=== PATIENT | female | born 1985 ===

== ENCOUNTER 2020-08-13 10:50 | Outpatient (CLI) | payer OTHER ==
[2020-08-14 14:49] LABS: SARS-CoV-2 MS2 Positive; SARS-CoV-2 N Gene Negative; SARS-CoV-2 S Gene Negative; SARS-CoV-2 by NAA Not Detected (NotDetected); SARS-CoV-2 orf1ab Negative
== END 2020-08-13 10:51 | disposition home or self-care (01) ==
LOC: LABSCS 10:50
PROVIDERS: ATTEND Family Medicine
DX: Z20.828 Contact with and (suspected) exposure to other viral communicable diseases (principal)
CPT/HCPCS: 87635; U0003

== ENCOUNTER 2020-08-16 19:15 | Inpatient (IN) | payer OTHER, SELFPAY ==
[2020-08-16] MEDS ORDERED: Ibuprofen 800 MG TAB PO PRN (22:26)
[2020-08-16] MEDS ORDERED: Butorphanol Tartrate 1 MG/ML VIAL SLOW IVP PRN (22:26)
[2020-08-16] MEDS ORDERED: Lidocaine 1% (PF) 30 ML VIAL SC PRN (22:26)
[2020-08-16] MEDS ORDERED: hydrALAZINE 20 MG/ML VIAL SLOW IVP PRN (22:26)
[2020-08-16] MEDS ORDERED: NS / Oxytocin 40 units/1000ml 1,000 ML IV PRN (22:26)
[2020-08-16] MEDS ORDERED: Ondansetron PF 4 MG/2 ML Vial IVP PRN (22:26)
[2020-08-16] MEDS ORDERED: Misoprostol 200 MCG TAB PR PRN (22:26)
[2020-08-16] MEDS ORDERED: Diphenoxylate HCl/Atropine Tablet PO PRN (22:26)
[2020-08-16] MEDS ORDERED: NS w/ Oxytocin 10 units 500 ML IV SCH ×2 (22:26)
[2020-08-16] MEDS ORDERED: Promethazine HCl 25 MG/ML VIAL IM PRN (22:26)
[2020-08-16] MEDS ORDERED: HYDROcodone/Acetaminophen 5/325 mg Tablet PO PRN (22:26)
[2020-08-16] MEDS ORDERED: Carboprost 250 MCG/ML AMP IM PRN (22:26)
[2020-08-16] MEDS ORDERED: Methylergonovine 0.2 MG/ML VIAL IM PRN (22:26)
[2020-08-16 22:51] VITALS: BMI 31.1
[2020-08-16] MEDS ORDERED: Ondansetron PF 4 MG/2 ML Vial ONE (23:16)
[2020-08-16 23:20] LABS: Hemoglobin 13.2 g/dL (12.0-16.0); Mean Corpuscular HGB CONC 33.9 g/dL (32.0-36.0); Mean Corpuscular Hemoglobin 32.6 pg (27.0-31.0); Mean Corpuscular Volume 95.9 fL (78.0-98.0); Mean Platelet Volume 7.6 fL (7.4-10.4); Platelet Count 210 thou/uL (130-400); RBC Distribution Width 12.3 % (11.5-14.5); Red Blood Cell (RBC) Count 4.05 mill/uL (4.20-5.40); White Blood Cell (WBC) Count 9.4 thou/uL (4.8-10.8)
[2020-08-16] MEDS: Misoprostol 100 MCG TAB PO SCH (23:26)
[2020-08-16] MEDS: Lactated Ringer's 1,000 ML IV SCH (23:28)
[2020-08-16] MEDS ORDERED: Penicillin G Potassium 5 MILL.UNITS in Sodium Chloride 0.9% 100 ML IVPB SCH (23:45)
[2020-08-17 00:01] LABS: Hep B Surf Ag Non-Reactive S/CO (NonReactive); Syphilis Antibody Nonreactive (Nonreactive); Syphilis Antibody Index 0.05 S/CO (<1.00 Non-Reactive)
[2020-08-17] MEDS: Misoprostol 100 MCG TAB PO SCH ×3 (04:41→17:50)
[2020-08-17] MEDS: Penicillin G 2.5 MILL.units 2.5 MILL.UNITS in Premix Bag 1 BAG IVPB SCH ×5 (08:54→12:55)
[2020-08-17] MEDS: Lactated Ringer's 1,000 ML IV SCH ×2 (08:58→16:01)
[2020-08-17] MEDS ORDERED: Misoprostol 100 MCG TAB PO PRN (09:28)
[2020-08-17] MEDS ORDERED: Misoprostol 100 MCG TAB VAG PRN (09:30)
[2020-08-17] MEDS ORDERED: Misoprostol 100 MCG TAB VAG SCH (09:30)
[2020-08-17] MEDS ORDERED: CEFAZOLIN 2 GM in Premix Bag 1 BAG IVPB SCH (12:15)
[2020-08-17] MEDS ORDERED: Bicitra 30 ML UDCUP PO SCH (12:15)
[2020-08-17] MEDS ORDERED: Terbutaline Sulfate 1 MG/ML VIAL ONE (12:41)
[2020-08-17] MEDS ORDERED: Terbutaline Sulfate 1 MG/ML VIAL SC SCH (13:15)
[2020-08-17] MEDS ORDERED: EPHEDRINE 25 MG/5 ML SYRINGE ONE (15:57)
[2020-08-17] MEDS ORDERED: Oxytocin 10 UNITS/ML VIAL ONE ×2 (15:57→16:54)
[2020-08-17] MEDS ORDERED: Ondansetron PF 4 MG/2 ML Vial ONE (15:57)
[2020-08-17] MEDS ORDERED: PHENYLEPHRINE-NS 100 MCG/ML 10 ML SYRINGE ONE (15:57)
[2020-08-17] MEDS ORDERED: Ketorolac Tromethamine 30 MG/ML VIAL ONE (15:57)
[2020-08-17] MEDS ORDERED: Naloxone HCl 0.4 mg/ml Vial IV PRN (16:30)
[2020-08-17] MEDS ORDERED: Ketorolac Tromethamine 30 MG/ML VIAL IVP SCH (16:30)
[2020-08-17] MEDS ORDERED: Ondansetron HCl/PF 4 MG/2 ML Vial IVP PRN (16:30)
[2020-08-17] MEDS ORDERED: Communication Order-Pharmacy FS SCH (16:30)
[2020-08-17] MEDS ORDERED: Ketorolac Tromethamine 30 MG/ML VIAL IVP PRN (16:30)
[2020-08-17] MEDS ORDERED: Promethazine HCl 25 MG/ML VIAL IM PRN ×2 (16:30→20:02)
[2020-08-17] MEDS ORDERED: HYDROmorphone 2 MG/ML VIAL SLOW IVP PRN (16:30)
[2020-08-17] MEDS ORDERED: diphenhydrAMINE 50 MG/ML VIAL IVP PRN (16:30)
[2020-08-17] MEDS ORDERED: Naloxone HCl 0.4 mg/ml Vial IVP PRN ×2 (16:30)
[2020-08-17] MEDS ORDERED: L&D-Morphine 4 MG/ML VIAL SLOW IVP PRN (16:30)
[2020-08-17] MEDS ORDERED: Promethazine HCl 25 MG SUPP PR PRN (16:30)
[2020-08-17] MEDS ORDERED: Ondansetron PF 4 MG/2 ML Vial IVP PRN ×2 (16:30→20:02)
[2020-08-17] MEDS ORDERED: Meperidine HCl/PF 25 MG/ML VIAL SLOW IVP PRN (16:30)
[2020-08-17] MEDS ORDERED: Midazolam HCl 2 mg/2 ml Vial ONE (17:02)
[2020-08-17] MEDS ORDERED: Lanolin Ointment 7 GM TUBE TOP PRN (20:02)
[2020-08-17] MEDS ORDERED: hydrALAZINE 20 MG/ML VIAL SLOW IVP PRN (20:02)
[2020-08-17] MEDS ORDERED: diphenhydrAMINE 25 MG CAP PO PRN (20:02)
[2020-08-17] MEDS ORDERED: Bisacodyl 10 MG SUPP PR PRN (20:02)
[2020-08-18] MEDS: Docusate Calcium (SURFAK) 240 MG CAP PO SCH ×3 (00:43→22:44)
[2020-08-18] MEDS: Ferrous Sulfate 325 MG TAB PO SCH ×2 (00:44→07:51)
[2020-08-18] MEDS: Ketorolac Tromethamine 30 MG/ML VIAL IVP SCH ×3 (00:45→12:22)
[2020-08-18] MEDS ORDERED: Meperidine HCl/PF 25 MG/ML VIAL IM PRN (04:30)
[2020-08-18] MEDS ORDERED: HYDROcodone/Acetaminophen 5/325 mg Tablet PO PRN (04:30)
[2020-08-18 05:59] LABS: Hemoglobin 11.5 g/dL (12.0-16.0); Mean Corpuscular HGB CONC 32.3 g/dL (32.0-36.0); Mean Corpuscular Hemoglobin 31.3 pg (27.0-31.0); Mean Corpuscular Volume 96.9 fL (78.0-98.0); Mean Platelet Volume 7.1 fL (7.4-10.4); Platelet Count 190 thou/uL (130-400); RBC Distribution Width 12.3 % (11.5-14.5); Red Blood Cell (RBC) Count 3.66 mill/uL (4.20-5.40); White Blood Cell (WBC) Count 9.6 thou/uL (4.8-10.8)
[2020-08-18] MEDS ORDERED: Adacel (T-DAP) 0.5 ML SYRINGE IM ONE (09:00)
[2020-08-18] MEDS: Prenatal Vitamin 1 TAB PO SCH (09:35)
[2020-08-18] MEDS: Simethicone Chewable 80 MG TAB PO PRN (14:09)
[2020-08-18] MEDS: HYDROcodone/Acetaminophen 5/325 mg Tablet PO PRN (14:10)
[2020-08-18] MEDS: Ibuprofen 800 MG TAB PO SCH ×2 (14:10→22:44)
[2020-08-19] MEDS: Ibuprofen 800 MG TAB PO SCH ×2 (06:46→13:57)
[2020-08-19] MEDS: Ferrous Sulfate 325 MG TAB PO SCH ×2 (06:46→08:20)
[2020-08-19] MEDS: HYDROcodone/Acetaminophen 5/325 mg Tablet PO PRN (08:36)
[2020-08-19] MEDS: Prenatal Vitamin 1 TAB PO SCH (08:36)
[2020-08-19] MEDS: Docusate Calcium (SURFAK) 240 MG CAP PO SCH (08:36)
[2020-08-19] MEDS: Simethicone Chewable 80 MG TAB PO PRN (08:51)
--- NOTE | 2020-08-19 08:56 | OP ---
DATE OF PROCEDURE: 08/17/2020 RESIDENT SURGEON: Breanna Esquivel MD. ATTENDING SURGEON: Dr. Palmer PROCEDURE PERFORMED: Primary low transverse section. PRIMARY DIAGNOSES: 1. Term intrauterine . 2. Fetus in transverse position and unstable lie. POSTOPERATIVE DIAGNOSES: 1. Term intrauterine , delivered. 2. Fetus in transverse position and unstable lie. ANESTHESIA: Spinal. QUANTITATIVE BLOOD LOSS: 762 mL. SPECIMENS: Cord blood obtained for blood type. FINDINGS: Viable male with Apgars of 8 and 9 at 1 and 5 minutes of life. Placenta intact with three vessel cord noted, discarded. COMPLICATIONS: None. DRAINS: [place] to gravity draining clear urine. INDICATIONS: A 34-year-old, G3, P1-0-0-1 female at 40.0 weeks gestation, presented to Labor and delivery for induction of labor. On admission, it was noted that the was transverse and also had unstable lie. PROCEDURE IN DETAIL: After risks, benefits, and alternatives were explained, the patient gave informed consent. Preoperative antibiotics included cefazolin 2 g IV. The patient was taken to the operating room, where spinal anesthesia was initiated. The patient was placed in the supine position with a left tilt. She was prepped and draped in the usual sterile fashion. A Pfannenstiel incision was made with the scalpel. The incision was carried down to the level of the fascia which was sharply nicked. The fascial cut was extended bilaterally with Fuentes scissors. The inferior and superior edges of the fascia were elevated with Janiya clamps, which were bluntly and sharply dissected free. The rectus muscles were divided digitally and retracted manually. The peritoneum was entered bluntly and retracted manually. The Babka O retractor was placed in the abdomen. A low transverse uterine incision was made with the scalpel. The uterus was entered bluntly in the midline. The was noted to have moved from transverse to vertex position and was delivered easily with fundal pressure. The cord was clamped and cut after delayed cord clamping. The infant was taken to the warmer to the team. Cord blood was obtained for blood type. The placenta was delivered by fundal massage and cord traction spontaneously. The uterus was externalized, and the endometrium was curetted with a dry lap. The hysterotomy was sutured in a running locking fashion with a #1 Monocryl suture. Hemostasis was noted. A second imbricating layer was made in a running nonlocking fashion with 0 Vicryl. Hemostasis was again noted. The abdomen was irrigated and suctioned free of clots. Seprafilm was placed on the anterior portion of the uterus and over the hysterotomy repair. The uterus was internalized and again noted to be hemostatic. The Babak O retractor was removed. The peritoneum was closed with a 3-0 Vicryl in a running nonlocking fashion. A small defect in the fascia was noted on the superior edge and repaired with an 0 PDS [id number] stitch. The fascia was closed with 0 PDS in a running, nonlocking fashion. The subcutaneous space was irrigated. The subcutaneous space was closed with 3 interrupted sutures using 3-0 plain gut. The skin was then closed with kimberly, and a pressure dressing was placed. The patient tolerated the procedure well and was taken to the recovery area for routine care and recovery. Job ID: [id number] [facility]
[2020-08-19 16:23] VITALS: BP 116/58; TEMP 98.3
[2020-08-19] MEDS ORDERED: Milk Of Magnesia 30 ML UDCUP PO SCH (17:30)
== END 2020-08-19 19:15 | disposition home or self-care (01) | DRG 788 ==
LOC: L&D 21:50 → 3SW 08-17 21:18
PROVIDERS: ADMIT Family Medicine; ATTEND Family Medicine
PROC: 10D00Z1 Extraction of Products of Conception, Low, Open Approach (ICD-10-PCS; principal; 2020-08-17)
PROC: 3E0P05Z Introduction of Adhesion Barrier into Female Reproductive, Open Approach (ICD-10-PCS; 2020-08-17)
DX: O32.2XX0 Maternal care for transverse and oblique lie, not applicable or unspecified (principal); O32.0XX0 Maternal care for unstable lie, not applicable or unspecified; Z3A.40 40 weeks gestation of pregnancy; Z37.0 Single live birth; Z20.828 Contact with and (suspected) exposure to other viral communicable diseases
CPT/HCPCS: 36415; 51702; 76815; 85027; 86780; 86850; 86900; 86901; 87340; J0690; J1200; J1885; J2250; J2270; J2405; J2540; J2550; J2590; J3105; J3490